=== PATIENT | male | born 1985 | race Caucasian/White ===

== ENCOUNTER 2017-11-28 22:38 | Emergency (ER) | payer SELFPAY ==
[~2017-11-28] VITALS: Ht 182.9 cm; Wt 87.0 kg
[2017-11-28] MEDS ORDERED: SODIUM CHLORIDE 0.9% 1,000 ML IV ONE ×2 (22:49→23:36)
[2017-11-28] MEDS ORDERED: TETANUS, DIPHTHERIA, PERTUSSIS VAC/PF 0.5ML (>7YR OLD) IM ONE (23:00)
[2017-11-28 23:11] LABS: BASOPHILS % 0.5 % (0.0-2.0); EOSINOPHILS % 0.4 % (0.0-5.0); HEMATOCRIT. 48.3 % (42.0-52.0); HEMOGLOBIN. 16.7 g/dL (14.0-18.0); MEAN CORPUSCULAR HEMOGLOBIN 33.8 pg (28.0-32.0); MEAN CORPUSCULAR VOLUME 98.2 fL (80.0-94.0); MEAN PLATELET VOLUME 9.6 fl (7.4-10.4); MONOCYTES % 8.2 % (2.0-8.0); NEUTROPHILS % 57.9 % (40.0-76.0); PLATELET 272 x1000/uL (130-400); RED BLOOD CELL COUNT 4.92 mill/uL (4.7-6.1); RED CELL DISTRIBUTION WIDTH 12.3 % (11.6-14.6)
[2017-11-28 23:18] LABS: CHLORIDE 103 mEq/L (98-107)
[2017-11-28 23:41] LABS: ETHANOL BLOOD 316 mg/dL
[2017-11-28 23:42] LABS: CLARITY URINE CLEAR (CLEAR); COLOR URINE YELLOW (YELLOW); KETONES URINE NEGATIVE (NEGATIVE); LEUKOCYTE ESTERASE URINE NEGATIVE (NEGATIVE); NITRITE URINE NEGATIVE (NEGATIVE); OCCULT BLOOD URINE 2+ (NEGATIVE); PROTEIN URINE 1+ (NEGATIVE); SPECIFIC GRAVITY URINE 1.026 (1.005-1.030); UROBILINOGEN URINE 0.2 E.U./dL (0.2-1.0)
[2017-11-28] MEDS ORDERED: LABETALOL 5MG/ML SYR 20 MG/4 ML SYRINGE IV SCH (23:45)
[2017-11-28] MEDS ORDERED: INSULIN REGULAR (HUMULIN R) 300UNITS/3ML IV SCH (23:45)
[2017-11-29] LABS: *AMPHETAMINES SCREEN URINE NEGATIVE (NEGATIVE); *BARBITURATES SCREEN URINE NEGATIVE (NEGATIVE); *BENZODIAZEPINES SCREEN URINE NEGATIVE (NEGATIVE)
[2017-11-29 00:02] LABS: *COCAINE SCREEN URINE NEGATIVE (NEGATIVE); CANNABINOID URINE SCREEN NEGATIVE (NEGATIVE); METHADONE URINE SCREEN NEGATIVE (NEGATIVE); OPIATES URINE SCREEN NEGATIVE (NEGATIVE); PHENCYCLIDINE URINE SCREEN NEGATIVE (NEGATIVE)
[2017-11-29 02:00] VITALS: BP 136/74
[2017-11-29] MEDS ORDERED: IOHEXOL-300 100 ML BOTTLE ONE (02:51)
== END 2017-11-29 02:35 | disposition home or self-care (01) ==
LOC: ER 23:03
DX: S01.111A Laceration without foreign body of right eyelid and periocular area, initial encounter (principal); S16.1XXA Strain of muscle, fascia and tendon at neck level, initial encounter; T51.0X1A Toxic effect of ethanol, accidental (unintentional), initial encounter; R73.9 Hyperglycemia, unspecified; R10.9 Unspecified abdominal pain; F17.200 Nicotine dependence, unspecified, uncomplicated; F12.10 Cannabis abuse, uncomplicated; Y08.89XA Assault by other specified means, initial encounter; Y93.89 Activity, other specified; Y92.89 Other specified places as the place of occurrence of the external cause; Y99.8 Other external cause status
CPT/HCPCS: 12011; 36415; 70450; 70486; 71260; 72125; 74177; 80053; 80305; 81003; 82962; 83690; 85025; 85610; 90471; 90715; 96374; 99285; G0482; J1815; J7030; Q9967; J3490

== ENCOUNTER 2020-01-03 05:25 | Emergency (ER) | payer MEDICAID ==
[~2020-01-03] VITALS: Ht 172.7 cm; Wt 70.0 kg
[2020-01-03] MEDS ORDERED: MAGNESIUM/ALUMINUM HYDROXIDE/SIMETHICONE 30ML UDC PO STA (06:28)
[2020-01-03] MEDS ORDERED: KETOROLAC 30MG/ML VIAL IV STA (06:28)
[2020-01-03] MEDS ORDERED: ONDANSETRON HCL 4MG/2ML INJ IV STA ×2 (06:28→07:51)
[2020-01-03] MEDS ORDERED: SODIUM CHLORIDE 0.9% 1,000 ML IV ONE (06:28)
[2020-01-03 06:55] LABS: CHLORIDE 96 mEq/L (98-107)
[2020-01-03 06:59] LABS: ETHANOL BLOOD < 10 mg/dL
[2020-01-03 07:16] LABS: BASOPHILS % 0.4 % (0.0-2.0); EOSINOPHILS % 0.2 % (0.0-5.0); HEMATOCRIT. 48.2 % (42.0-52.0); HEMOGLOBIN. 16.9 g/dL (14.0-18.0); LYMPHOCYTES % 16.5 % (20.0-50.0); MEAN CORPUSCULAR HEMOGLOBIN 34.3 pg (28.0-32.0); MEAN CORPUSCULAR VOLUME 97.9 fL (80.0-94.0); MEAN PLATELET VOLUME 9.5 fl (7.4-10.4); MONOCYTES % 9.6 % (2.0-8.0); NEUTROPHILS % 73.3 % (40.0-76.0); PLATELET 239 x1000/uL (130-400); RED BLOOD CELL COUNT 4.92 mill/uL (4.7-6.1); RED CELL DISTRIBUTION WIDTH 12.1 % (11.6-14.6)
[2020-01-03] MEDS ORDERED: MORPHINE SULFATE 4 MG/ML CPJ (NOT FOR IM USE) IV STA (07:51)
[2020-01-03 09:23] LABS: CLARITY URINE CLEAR (CLEAR); COLOR URINE YELLOW (YELLOW); KETONES URINE 4+ (NEGATIVE); LEUKOCYTE ESTERASE URINE NEGATIVE (NEGATIVE); NITRITE URINE NEGATIVE (NEGATIVE); OCCULT BLOOD URINE NEGATIVE (NEGATIVE); PROTEIN URINE 1+ (NEGATIVE); SPECIFIC GRAVITY URINE 1.045 (1.005-1.030); UROBILINOGEN URINE 0.2 E.U./dL (0.2-1.0)
[2020-01-03 09:38] VITALS: BP 131/91
[2020-01-03 09:57] LABS: *AMPHETAMINES SCREEN URINE NEGATIVE (NEGATIVE); *BARBITURATES SCREEN URINE NEGATIVE (NEGATIVE); *BENZODIAZEPINES SCREEN URINE NEGATIVE (NEGATIVE)
[2020-01-03 09:58] LABS: *COCAINE SCREEN URINE NEGATIVE (NEGATIVE); CANNABINOID URINE SCREEN PRESUMTIVE POSITIVE (NEGATIVE); METHADONE URINE SCREEN NEGATIVE (NEGATIVE); OPIATES URINE SCREEN NEGATIVE (NEGATIVE); PHENCYCLIDINE URINE SCREEN NEGATIVE (NEGATIVE)
== END 2020-01-03 09:40 | disposition home or self-care (01) ==
LOC: ER 05:25
DX: R10.9 Unspecified abdominal pain (principal); R11.2 Nausea with vomiting, unspecified; F12.10 Cannabis abuse, uncomplicated
CPT/HCPCS: 36415; 74176; 80053; 80305; 80320; 81003; 83690; 85025; 93005; 96361; 96374; 96375; 99285; J1885; J2270; J2405; J7030; G0480

== ENCOUNTER 2021-09-06 21:41 | Inpatient (IN) | payer SELFPAY ==
[~2021-09-06] VITALS: Ht 177.8 cm; Wt 72.6 kg
[2021-09-06] MEDS ORDERED: KETOROLAC 30MG/ML VIAL IV STA (22:36)
[2021-09-06] MEDS ORDERED: KETOROLAC 30MG/ML VIAL IM STA (22:57)
[2021-09-06 23:35] LABS: CLARITY URINE CLEAR (CLEAR); COLOR URINE YELLOW (YELLOW); KETONES URINE NEGATIVE (NEGATIVE); LEUKOCYTE ESTERASE URINE NEGATIVE (NEGATIVE); NITRITE URINE NEGATIVE (NEGATIVE); OCCULT BLOOD URINE NEGATIVE (NEGATIVE); PROTEIN URINE NEGATIVE (NEGATIVE); SPECIFIC GRAVITY URINE 1.013 (1.005-1.030)
[2021-09-06 23:40] LABS: BASOPHILS % 0.7 % (0.0-2.0); EOSINOPHILS % 2.2 % (0.0-5.0); HEMATOCRIT. 39.6 % (42.0-52.0); HEMOGLOBIN. 13.9 g/dL (14.0-18.0); LYMPHOCYTES % 21.4 % (20.0-50.0); MEAN CORPUSCULAR HEMOGLOBIN 34.4 pg (28.0-32.0); MEAN CORPUSCULAR VOLUME 98.4 fL (80.0-94.0); MONOCYTES % 10.8 % (2.0-8.0); NEUTROPHILS % 64.9 % (40.0-76.0); PLATELET 351 x1000/uL (130-400); RED BLOOD CELL COUNT 4.03 mill/uL (4.7-6.1); RED CELL DISTRIBUTION WIDTH 12.2 % (11.6-14.6)
[2021-09-06 23:47] LABS: CHLORIDE 97 mEq/L (98-107)
[2021-09-07] MEDS ORDERED: SODIUM CHLORIDE 0.9% 1000ML BAG (SEPSIS BOLUS) IV ONE (00:15)
[2021-09-07] MEDS ORDERED: VANCOMYCIN 1G PREMIX 200 ML IV NR (00:15)
[2021-09-07] MEDS ORDERED: PIPERACILLIN/TAZ 3.375G PREMIX 50 ML IV NR (00:15)
[2021-09-07] MEDS ORDERED: DOCUSATE SODIUM 100MG CAPSULE PO PRN (03:00)
[2021-09-07] MEDS ORDERED: CLONIDINE 0.1MG TABLET PO PRN (03:00)
[2021-09-07] MEDS ORDERED: GUAIFENESIN 200MG/10ML SUGAR FREE UDC PO PRN (03:00)
[2021-09-07] MEDS ORDERED: ONDANSETRON HCL 4MG/2ML INJ IV PRN (03:00)
[2021-09-07] MEDS ORDERED: IPRATROPIUM/ALBUTEROL 0.5-3(2.5)MG/3ML NEB HHN PRN (03:00)
[2021-09-07] MEDS ORDERED: ACETAMINOPHEN 325MG TABLET PO PRN (03:00)
[2021-09-07] MEDS ORDERED: DEXTROSE 50% WATER 50ML SYRINGE IV PRN (03:00)
[2021-09-07] MEDS ORDERED: CEFEPIME 1,000 MG in DEXTROSE 5% WATER 50 ML IV SCH ×5 (03:30→15:00)
[2021-09-07 05:32] LABS: EOSINOPHILS % 3.3 % (0.0-5.0); LYMPHOCYTES % 31.8 % (20.0-50.0); MEAN CORPUSCULAR HEMOGLOBIN 34.4 pg (28.0-32.0); MEAN CORPUSCULAR VOLUME 97.9 fL (80.0-94.0); NEUTROPHILS % 54.9 % (40.0-76.0); PLATELET 327 x1000/uL (130-400); RED BLOOD CELL COUNT 3.78 mill/uL (4.7-6.1); RED CELL DISTRIBUTION WIDTH 12.3 % (11.6-14.6)
[2021-09-07 05:33] LABS: CHLORIDE 103 mEq/L (98-107)
[2021-09-07 08:42] VITALS: BP 177/110
[2021-09-07] MEDS: BLOOD SUGAR DIAGNOSTIC STRIP TEST SCH ×4 (09:00→21:00)
[2021-09-07] MEDS: ENOXAPARIN 40MG/0.4ML SYR SUBCUT SCH (09:21)
[2021-09-07] MEDS: INSULIN LISPRO 100 UNITS/ML SUBCUT SCH ×6 (09:22→22:24)
[2021-09-07 10:26] LABS: *COCAINE SCREEN URINE NEGATIVE (NEGATIVE)
[2021-09-07 10:27] LABS: *AMPHETAMINES SCREEN URINE PRESUMTIVE POSITIVE (NEGATIVE); *BARBITURATES SCREEN URINE NEGATIVE (NEGATIVE); *BENZODIAZEPINES SCREEN URINE NEGATIVE (NEGATIVE); CANNABINOID URINE SCREEN NEGATIVE (NEGATIVE); METHADONE URINE SCREEN NEGATIVE (NEGATIVE); OPIATES URINE SCREEN NEGATIVE (NEGATIVE); PHENCYCLIDINE URINE SCREEN NEGATIVE (NEGATIVE)
[2021-09-07] MEDS: HYDRALAZINE 20MG/ML VIAL IV PRN (11:36)
[2021-09-07 12:00] VITALS: BP 165/115
[2021-09-07] MEDS: VANCOMYCIN 1G PREMIX 200 ML IV SCH ×2 (12:51→22:28)
[2021-09-07] MEDS: CEFEPIME 1,000 MG in DEXTROSE 5% WATER 50 ML IV SCH (15:28)
[2021-09-07 16:00] VITALS: BP 141/98
[2021-09-07 20:00] VITALS: BP 137/85
[2021-09-07] MEDS: INSULIN GLARGINE UD 100 UNITS/ML SYR SUBCUT SCH (22:23)
[2021-09-08] VITALS (7 sets, daily range): BP systolic 143–171; BP diastolic 60–111
[2021-09-08] MEDS: CEFEPIME 1,000 MG in DEXTROSE 5% WATER 50 ML IV SCH ×2 (03:10→17:21)
[2021-09-08] MEDS: VANCOMYCIN 1G PREMIX 200 ML IV SCH (04:13)
[2021-09-08] MEDS: INSULIN LISPRO 100 UNITS/ML SUBCUT SCH ×5 (06:35→20:35)
[2021-09-08] MEDS: BLOOD SUGAR DIAGNOSTIC STRIP TEST SCH ×4 (06:35→20:35)
[2021-09-08] MEDS: ENOXAPARIN 40MG/0.4ML SYR SUBCUT SCH (08:00)
[2021-09-08 08:26] LABS: CHLORIDE 99 mEq/L (98-107)
[2021-09-08 08:33] LABS: BASOPHILS % 0.7 % (0.0-2.0); EOSINOPHILS % 2.7 % (0.0-5.0); HEMATOCRIT. 39.2 % (42.0-52.0); HEMOGLOBIN. 13.8 g/dL (14.0-18.0); LYMPHOCYTES % 18.9 % (20.0-50.0); MEAN CORPUSCULAR HEMOGLOBIN 34.4 pg (28.0-32.0); MEAN CORPUSCULAR VOLUME 97.4 fL (80.0-94.0); MONOCYTES % 8.6 % (2.0-8.0); NEUTROPHILS % 69.1 % (40.0-76.0); PLATELET 287 x1000/uL (130-400); RED BLOOD CELL COUNT 4.02 mill/uL (4.7-6.1); RED CELL DISTRIBUTION WIDTH 12.3 % (11.6-14.6)
[2021-09-08] MEDS: REPAGLINIDE 1MG TABLET PO SCH ×2 (11:58→17:22)
[2021-09-08] MEDS ORDERED: VANCOMYCIN 1GM PMX (XELLIA) 200 ML IV SCH ×2 (14:00)
[2021-09-08] MEDS: VANCOMYCIN 1GM PMX (XELLIA) 200 ML IV SCH ×2 (15:02→22:12)
[2021-09-08] MEDS: HYDRALAZINE 20MG/ML VIAL IV PRN (21:26)
[2021-09-08] MEDS: INSULIN GLARGINE UD 100 UNITS/ML SYR SUBCUT SCH (22:13)
[2021-09-09] VITALS: BP 118/74
[2021-09-09 04:00] VITALS: BP 128/88
[2021-09-09] MEDS: CEFEPIME 1,000 MG in DEXTROSE 5% WATER 50 ML IV SCH ×2 (04:10→17:00)
[2021-09-09] MEDS: VANCOMYCIN 1GM PMX (XELLIA) 200 ML IV SCH ×2 (06:14→16:32)
[2021-09-09] MEDS: INSULIN LISPRO 100 UNITS/ML SUBCUT SCH ×2 (06:17→12:40)
[2021-09-09] MEDS: BLOOD SUGAR DIAGNOSTIC STRIP TEST SCH ×2 (06:17→12:42)
[2021-09-09 08:00] VITALS: BP 138/89
[2021-09-09] MEDS: REPAGLINIDE 1MG TABLET PO SCH (09:14)
[2021-09-09] MEDS: ENOXAPARIN 40MG/0.4ML SYR SUBCUT SCH (09:14)
[2021-09-09 12:00] VITALS: BP 122/75
[2021-09-09] MEDS ORDERED: REPAGLINIDE 1MG TABLET PO SCH (12:40)
[2021-09-09] MEDS ORDERED: SULF1TAB48 MT (13:05)
[2021-09-09] MEDS ORDERED: METF-414 MT (13:05)
[2021-09-09] MEDS ORDERED: LEVO500T89 MT (13:05)
[2021-09-09] MEDS ORDERED: EMPA25TA MT (13:05)
[2021-09-09 14:02] VITALS: BP 114/78
[2021-09-09 16:00] VITALS: BP 113/71
== END 2021-09-09 18:00 | disposition home or self-care (01) | DRG 342 ==
LOC: ER 21:41 → 8WST 09-07 02:33 → EDBEDREQTM 09-07 02:59 → EDBEDREQSVC 09-07 02:59 → EDBEDREQ 09-07 02:59 → ENRESERV 09-07 07:28 → 8WST 09-07 08:19
PROVIDERS: ADMIT Internal Medicine; ATTEND Internal Medicine
DX: S92.411A Displaced fracture of proximal phalanx of right great toe, initial encounter for closed fracture (principal); E87.1 Hypo-osmolality and hyponatremia; L03.031 Cellulitis of right toe; F15.90 Other stimulant use, unspecified, uncomplicated; E11.65 Type 2 diabetes mellitus with hyperglycemia; I10 Essential (primary) hypertension; Z90.49 Acquired absence of other specified parts of digestive tract; X58.XXXA Exposure to other specified factors, initial encounter; Y93.89 Activity, other specified; Y92.89 Other specified places as the place of occurrence of the external cause; Y99.8 Other external cause status
CPT/HCPCS: 36415; 71045; 73610; 73630; 80048; 80053; 80202; 80305; 81003; 82962; 83036; 83605; 84145; 85025; 93005; 93971; 99285; J0360; J0692; J1650; J1815; J1885; J2405; J2543; J3370; J7040; J7060

== ENCOUNTER 2023-12-30 14:42 | Inpatient (IN) | payer MEDICAID ==
[~2023-12-30] VITALS: Ht 177.8 cm; Wt 70.3 kg
[~2023-12-30 14:42] MED LIST: EMPA25TA MT; LEVO-65 MT; METF-414 MT; SULF1TAB48 MT
[2023-12-30 15:45] LABS: BASOPHILS % 0.4 % (0.0-2.0); EOSINOPHILS % 0.5 % (0.0-5.0); HEMATOCRIT. 36.6 % (42.0-52.0); HEMOGLOBIN. 11.8 g/dL (14.0-18.0); LYMPHOCYTES % 8.6 % (20.0-50.0); MEAN CORPUSCULAR HEMOGLOBIN 32.1 pg (28.0-32.0); MEAN CORPUSCULAR HGB CONC 32.2 g/dL (31.0-37.0); MEAN CORPUSCULAR VOLUME 99.8 fL (80.0-94.0); MEAN PLATELET VOLUME 8.1 fl (7.4-10.4); MONOCYTES % 7.7 % (2.0-8.0); NEUTROPHILS % 82.8 % (40.0-76.0); PLATELET 578 x1000/uL (130-400); RED BLOOD CELL COUNT 3.67 mill/uL (4.7-6.1)
[2023-12-30 15:54] LABS: CHLORIDE 91 mEq/L (98-107); INR 0.9; POTASSIUM 4.8 mEq/L (3.5-5.1); PROTHROMBIN TIME 10.3 sec (9.6-11.0); SODIUM 123 mEq/L (136-145)
[2023-12-30 15:55] LABS: CALCIUM 8.8 mg/dL (8.7-10.4); CARBON DIOXIDE 23 mEq/L (21-32)
[2023-12-30 15:59] LABS: CREATININE 1.2 mg/dL (0.6-1.3)
[2023-12-30 16:00] LABS: UREA NITROGEN BLOOD 14 mg/dL (9-23)
[2023-12-30 16:13] LABS: GLUCOSE 668 mg/dL (70-105)
[2023-12-30 16:14] LABS: LACTIC ACID 3.9 mmol/L (0.4-2.0)
[2023-12-30] MEDS: LEVOFLOXACIN 500MG PREMIX 100 ML IV ONE (16:30)
[2023-12-30] MEDS: SODIUM CHLORIDE 0.9% 1000ML BAG (SEPSIS BOLUS) IV ONE (16:38)
[2023-12-30] MEDS: PIPERACILLIN/TAZO 3.375G/50ML 50 ML IV ONE (16:40)
[2023-12-30] MEDS ORDERED: MAGNESIUM/ALUMINUM HYDROXIDE/SIMETHICONE 30ML UDC PO PRN (18:30)
[2023-12-30] MEDS ORDERED: IPRATROPIUM/ALBUTEROL 0.5-3(2.5)MG/3ML NEB HHN PRN (18:30)
[2023-12-30] MEDS ORDERED: GUAIFENESIN 200MG/10ML SUGAR FREE UDC PO PRN (18:30)
[2023-12-30] MEDS ORDERED: ONDANSETRON HCL 4MG/2ML INJ IV PRN (18:30)
[2023-12-30] MEDS ORDERED: DEXTROSE 50% WATER 50ML SYRINGE IV PRN (18:30)
[2023-12-30] MEDS ORDERED: ACETAMINOPHEN 325MG TABLET PO PRN (18:30)
[2023-12-30] MEDS ORDERED: DOCUSATE SODIUM 100MG CAPSULE PO PRN (18:30)
[2023-12-30] MEDS ORDERED: NOREPINEPHRINE 8MG/250ML PMX 250 ML IV PRN (18:46)
[2023-12-30] MEDS: INSULIN LISPRO 100 UNITS/ML SUBCUT ONE (19:40)
[2023-12-30 19:49] LABS: BETA HYDROXYBUTYRATE < 0.1 mMol/L (0.0-0.3)
[2023-12-30] MEDS ORDERED: CEFEPIME 1GM/50ML 50 ML IV SCH (20:00)
[2023-12-30] MEDS: INSULIN LISPRO 100 UNITS/ML SUBCUT SCH (21:00)
[2023-12-30] MEDS ORDERED: CEFTRIAXONE 2GM/50ML 50 ML IV SCH (21:00)
[2023-12-30] MEDS: VANCOMYCIN 1.5GM/250ML 250 ML IV SCH (21:00)
[2023-12-30] MEDS: BLOOD SUGAR DIAGNOSTIC STRIP TEST SCH (21:00)
[2023-12-30 21:53] LABS: CREATINE KINASE 25 IU/L (46-171)
[2023-12-31 02:07] VITALS: BP 100/62; PULSE 90; RESP 18; TEMP 97.8
[2023-12-31 04:28] LABS: CLARITY URINE CLEAR (CLEAR); COLOR URINE YELLOW (YELLOW); GLUCOSE URINE 3+ (NEGATIVE); KETONES URINE NEGATIVE (NEGATIVE); LEUKOCYTE ESTERASE URINE NEGATIVE (NEGATIVE); NITRITE URINE NEGATIVE (NEGATIVE); OCCULT BLOOD URINE NEGATIVE (NEGATIVE); PH URINE 6.5 (4.5-8.0); PROTEIN URINE NEGATIVE (NEGATIVE); SPECIFIC GRAVITY URINE 1.029 (1.005-1.030); UROBILINOGEN URINE 0.2 E.U./dL (0.2-1.0)
[2023-12-31 04:35] LABS: *AMPHETAMINES SCREEN URINE NEGATIVE (NEGATIVE); *BARBITURATES SCREEN URINE NEGATIVE (NEGATIVE); *BENZODIAZEPINES SCREEN URINE NEGATIVE (NEGATIVE); *COCAINE SCREEN URINE NEGATIVE (NEGATIVE); CANNABINOID URINE SCREEN NEGATIVE (NEGATIVE); ECSTASY MDMA SCREEN URINE NEGATIVE (NEGATIVE); METHADONE URINE SCREEN NEGATIVE (NEGATIVE); OPIATES URINE SCREEN NEGATIVE (NEGATIVE); PHENCYCLIDINE URINE SCREEN NEGATIVE (NEGATIVE)
[2023-12-31 04:37] VITALS: BP 124/80; PULSE 85; RESP 18; TEMP 97.2
[2023-12-31 05:03] LABS: BACTERIA URINE TRACE; RBC URINE 0-2 /hpf (0-2); SQUAMOUS EPITHELIAL CELL URINE FEW /lpf (RARE/1+); WBC URINE 0-2 /hpf (0-2)
[2023-12-31] MEDS: CLINDAMYCIN HCL 150MG CAPSULE PO SCH (05:28)
[2023-12-31] MEDS: VANCOMYCIN 750MG/250ML IV SCH (06:09)
[2023-12-31] MEDS: SODIUM CHLORIDE 0.9% 1,000 ML IV SCH (06:50)
[2023-12-31 07:40] LABS: BASOPHILS % 0.6 % (0.0-2.0); EOSINOPHILS % 1.2 % (0.0-5.0); HEMATOCRIT. 34.4 % (42.0-52.0); HEMOGLOBIN. 11.5 g/dL (14.0-18.0); MEAN CORPUSCULAR HEMOGLOBIN 32.1 pg (28.0-32.0); MEAN CORPUSCULAR HGB CONC 33.4 g/dL (31.0-37.0); MEAN CORPUSCULAR VOLUME 96.4 fL (80.0-94.0); MEAN PLATELET VOLUME 8.3 fl (7.4-10.4); MONOCYTES % 9.2 % (2.0-8.0); PLATELET 618 x1000/uL (130-400); RED BLOOD CELL COUNT 3.57 mill/uL (4.7-6.1); WHITE BLOOD COUNT 8.1 x1000/uL (4.5-11.0)
[2023-12-31 07:41] LABS: CALCIUM 8.8 mg/dL (8.7-10.4); CARBON DIOXIDE 26 mEq/L (21-32); CHLORIDE 99 mEq/L (98-107); POTASSIUM 4.7 mEq/L (3.5-5.1)
[2023-12-31 07:45] LABS: CREATINE KINASE MB FRACTION < 0.5 ng/mL (0.5-3.6)
[2023-12-31 07:47] LABS: CREATININE 0.7 mg/dL (0.6-1.3); TRIGLYCERIDE 127 mg/dL (0-150); UREA NITROGEN BLOOD 8 mg/dL (9-23)
[2023-12-31 07:48] LABS: LDL CHOLESTEROL 58 mg/dL (5-100)
[2023-12-31 07:49] LABS: CHOLESTEROL 111 mg/dL (<200); HDL CHOLESTEROL 37 mg/dL (>55)
[2023-12-31 07:50] LABS: T4 FREE 1.18 ng/dL (0.89-1.76)
[2023-12-31 07:55] LABS: SODIUM 132 mEq/L (136-145)
[2023-12-31 07:56] LABS: GLUCOSE 365 mg/dL (70-105)
[2023-12-31 08:00] VITALS: BP 101/73; PULSE 76; RESP 18; TEMP 97.3
[2023-12-31] MEDS: LACTOBACILLUS GG CAPSULE PO SCH (08:43)
[2023-12-31] MEDS: THIAMINE HCL 100MG TABLET PO SCH (08:43)
[2023-12-31] MEDS: ENOXAPARIN 40MG/0.4ML SYR SUBCUT SCH (08:44)
[2023-12-31] MEDS: INSULIN LISPRO 100 UNITS/ML SUBCUT SCH (08:57)
[2023-12-31] MEDS ORDERED: CEFEPIME 1GM IN DEXT 5% 50ML IV SCH (09:00)
[2023-12-31] MEDS: INSULIN GLARGINE 100 UNITS/ML SUBCUT SCH (09:03)
[2023-12-31] MEDS: CEFTRIAXONE 2GM/50ML 50 ML IV SCH (11:34)
[2023-12-31 12:00] VITALS: BP 128/89; PULSE 98; RESP 18; TEMP 98.1
[2023-12-31 16:00] VITALS: BP 120/76; PULSE 79; RESP 18; TEMP 98.1
[2023-12-31 20:00] VITALS: BP 129/93; PULSE 83; RESP 19; TEMP 97.5
[2023-12-31] MEDS: MORPHINE SULFATE 2 MG/ML INJ (NOT FOR IM USE) IV PRN (20:17)
[2024-01-01] VITALS: BP 108/75; PULSE 75; RESP 19; TEMP 97.3
[2024-01-01 04:00] VITALS: BP 95/71; PULSE 78; RESP 19; TEMP 98.2
[2024-01-01 08:00] VITALS: BP 110/76; PULSE 76; RESP 18; TEMP 97.2
[2024-01-01] MEDS ORDERED: NALOXONE HCL 0.4MG/ML VIAL IV PRN (08:15)
[2024-01-01 10:36] LABS: BASOPHILS % 0.5 % (0.0-2.0); EOSINOPHILS % 1.4 % (0.0-5.0); HEMATOCRIT. 34.3 % (42.0-52.0); HEMOGLOBIN. 11.6 g/dL (14.0-18.0); LYMPHOCYTES % 24.2 % (20.0-50.0); MEAN CORPUSCULAR HEMOGLOBIN 32.8 pg (28.0-32.0); MEAN CORPUSCULAR HGB CONC 33.7 g/dL (31.0-37.0); MEAN CORPUSCULAR VOLUME 97.2 fL (80.0-94.0); MEAN PLATELET VOLUME 7.8 fl (7.4-10.4); MONOCYTES % 6.5 % (2.0-8.0); NEUTROPHILS % 67.4 % (40.0-76.0); PLATELET 643 x1000/uL (130-400); RED BLOOD CELL COUNT 3.53 mill/uL (4.7-6.1); RED CELL DISTRIBUTION WIDTH 13.7 % (11.6-14.6); WHITE BLOOD COUNT 6.9 x1000/uL (4.5-11.0)
[2024-01-01 11:05] LABS: CARBON DIOXIDE 25 mEq/L (21-32); CHLORIDE 94 mEq/L (98-107); POTASSIUM 4.3 mEq/L (3.5-5.1); SODIUM 126 mEq/L (136-145)
[2024-01-01 11:06] LABS: CALCIUM 8.7 mg/dL (8.7-10.4)
[2024-01-01 11:11] LABS: CREATININE 0.6 mg/dL (0.6-1.3); GLUCOSE 367 mg/dL (70-105); UREA NITROGEN BLOOD 8 mg/dL (9-23)
[2024-01-01 12:00] VITALS: BP 95/64; PULSE 73; RESP 18; TEMP 97.2
[2024-01-01] MEDS: SODIUM HYPOCHLORITE (0.25%) 480ML SOLUTION (HALF STRENGTH) TOP SCH (12:14)
[2024-01-01 16:00] VITALS: BP 117/82; PULSE 88; RESP 20; TEMP 97.2
[2024-01-01 20:00] VITALS: BP 148/108; PULSE 87; RESP 20; TEMP 97.3
[2024-01-01] MEDS: VANCOMYCIN 750MG/250ML IV SCH (21:09)
[2024-01-01] MEDS ORDERED: VANCOMYCIN 750MG/150ML (BAXTER) IV NR (22:00)
[2024-01-02] VITALS: BP 120/66; PULSE 76; RESP 19; TEMP 97.6
[2024-01-02 04:00] VITALS: BP 103/71; PULSE 77; RESP 18; TEMP 97.9
[2024-01-02 08:00] VITALS: BP 115/79; PULSE 84; RESP 20; TEMP 97.9
[2024-01-02 12:00] VITALS: BP 131/89; PULSE 80; RESP 20; TEMP 97.9
[2024-01-02 12:24] LABS: BASOPHILS % 0.5 % (0.0-2.0); HEMATOCRIT. 34.1 % (42.0-52.0); HEMOGLOBIN. 11.5 g/dL (14.0-18.0); LYMPHOCYTES % 24.8 % (20.0-50.0); MEAN CORPUSCULAR HEMOGLOBIN 32.2 pg (28.0-32.0); MEAN CORPUSCULAR HGB CONC 33.7 g/dL (31.0-37.0); MEAN CORPUSCULAR VOLUME 95.6 fL (80.0-94.0); MEAN PLATELET VOLUME 7.4 fl (7.4-10.4); MONOCYTES % 7.9 % (2.0-8.0); NEUTROPHILS % 65.8 % (40.0-76.0); PLATELET 699 x1000/uL (130-400); RED BLOOD CELL COUNT 3.56 mill/uL (4.7-6.1); RED CELL DISTRIBUTION WIDTH 13.7 % (11.6-14.6); WHITE BLOOD COUNT 7.2 x1000/uL (4.5-11.0)
[2024-01-02 12:33] LABS: CHLORIDE 101 mEq/L (98-107); POTASSIUM 4.4 mEq/L (3.5-5.1); SODIUM 132 mEq/L (136-145)
[2024-01-02 12:34] LABS: CARBON DIOXIDE 26 mEq/L (21-32)
[2024-01-02 12:35] LABS: CALCIUM 8.8 mg/dL (8.7-10.4)
[2024-01-02 12:39] LABS: CREATININE 0.6 mg/dL (0.6-1.3); GLUCOSE 228 mg/dL (70-105)
[2024-01-02 12:40] LABS: UREA NITROGEN BLOOD 9 mg/dL (9-23)
[2024-01-02] MEDS: VANCOMYCIN 750MG/250ML IV SCH (15:07)
[2024-01-02 16:00] VITALS: BP 135/97; PULSE 88; RESP 18; TEMP 97.9
[2024-01-02 20:00] VITALS: BP 168/115; PULSE 93; RESP 20; TEMP 98.6
[2024-01-02] MEDS: MEROPENEM 1G/100ML 100 ML IV SCH (22:06)
[2024-01-02] MEDS: CLONIDINE 0.1MG TABLET PO PRN (22:34)
[2024-01-03] VITALS: BP 92/53; PULSE 78; RESP 20; TEMP 97.7
[2024-01-03 04:00] VITALS: BP 98/63; PULSE 75; RESP 20; TEMP 97.9
[2024-01-03 06:01] LABS: BASOPHILS % 0.7 % (0.0-2.0); EOSINOPHILS % 1.1 % (0.0-5.0); HEMATOCRIT. 31.3 % (42.0-52.0); HEMOGLOBIN. 10.7 g/dL (14.0-18.0); LYMPHOCYTES % 25.7 % (20.0-50.0); MEAN CORPUSCULAR HEMOGLOBIN 32.4 pg (28.0-32.0); MEAN CORPUSCULAR HGB CONC 34.1 g/dL (31.0-37.0); MEAN CORPUSCULAR VOLUME 95.1 fL (80.0-94.0); MEAN PLATELET VOLUME 7.8 fl (7.4-10.4); MONOCYTES % 8.2 % (2.0-8.0); NEUTROPHILS % 64.3 % (40.0-76.0); PLATELET 602 x1000/uL (130-400); RED BLOOD CELL COUNT 3.29 mill/uL (4.7-6.1); RED CELL DISTRIBUTION WIDTH 13.5 % (11.6-14.6); WHITE BLOOD COUNT 6.5 x1000/uL (4.5-11.0)
[2024-01-03 06:07] LABS: CARBON DIOXIDE 28 mEq/L (21-32); CHLORIDE 102 mEq/L (98-107); POTASSIUM 4.1 mEq/L (3.5-5.1); SODIUM 133 mEq/L (136-145)
[2024-01-03 06:08] LABS: CALCIUM 8.7 mg/dL (8.7-10.4)
[2024-01-03 06:12] LABS: CREATININE 0.5 mg/dL (0.6-1.3); GLUCOSE 229 mg/dL (70-105)
[2024-01-03 06:13] LABS: UREA NITROGEN BLOOD 7 mg/dL (9-23)
[2024-01-03 08:11] VITALS: BP 130/95; PULSE 77; RESP 18; TEMP 98.5
[2024-01-03] MEDS: INSULIN GLARGINE 100 UNITS/ML SUBCUT SCH (09:22)
[2024-01-03 11:46] VITALS: BP 110/79; PULSE 72; RESP 20; TEMP 97.2
[2024-01-03 16:21] VITALS: BP 143/99; PULSE 93; RESP 18; TEMP 98.2
[2024-01-03 20:00] VITALS: BP 130/95; PULSE 94; RESP 18; TEMP 98
[2024-01-04] VITALS: BP 140/91; PULSE 93; RESP 20; TEMP 98
[2024-01-04 04:00] VITALS: BP 112/80; PULSE 80; RESP 18; TEMP 97.1
[2024-01-04 06:54] LABS: BASOPHILS % 1.2 % (0.0-2.0); EOSINOPHILS % 1.4 % (0.0-5.0); HEMATOCRIT 34.3 % (42.0-52.0); HEMATOCRIT. 34.3 % (42.0-52.0); HEMOGLOBIN 11.5 g/dL (14.0-18.0); HEMOGLOBIN. 11.5 g/dL (14.0-18.0); LYMPHOCYTES % 27.2 % (20.0-50.0); MEAN CORPUSCULAR HEMOGLOBIN 32.2 pg (28.0-32.0); MEAN CORPUSCULAR HGB CONC 33.5 g/dL (31.0-37.0); MEAN CORPUSCULAR VOLUME 96.1 fL (80.0-94.0); MEAN PLATELET VOLUME 7.3 fl (7.4-10.4); MONOCYTES % 7.2 % (2.0-8.0); PLATELET 655 x1000/uL (130-400); RED BLOOD CELL COUNT 3.57 mill/uL (4.7-6.1); RED CELL DISTRIBUTION WIDTH 13.9 % (11.6-14.6); WHITE BLOOD COUNT 7.5 x1000/uL (4.5-11.0)
[2024-01-04 07:00] LABS: CARBON DIOXIDE 28 mEq/L (21-32); CHLORIDE 101 mEq/L (98-107); POTASSIUM 4.5 mEq/L (3.5-5.1); SODIUM 135 mEq/L (136-145)
[2024-01-04 07:01] LABS: CALCIUM 9.1 mg/dL (8.7-10.4)
[2024-01-04 07:06] LABS: CREATININE 0.7 mg/dL (0.6-1.3); GLUCOSE 194 mg/dL (70-105); UREA NITROGEN BLOOD 9 mg/dL (9-23)
[2024-01-04 07:08] LABS: PHOSPHORUS 4.2 mg/dL (2.5-4.9)
[2024-01-04 08:00] VITALS: BP 129/81; PULSE 78; RESP 18; TEMP 97.6
[2024-01-04] MEDS ORDERED: LIDOCAINE HCL 1% 20ML VIAL ONE (08:31)
[2024-01-04] MEDS ORDERED: BUPIVACAINE HCL/PF 0.5% (5MG/ML) 10ML ONE (08:32)
[2024-01-04] MEDS ORDERED: BACITRACIN 14GM TUBE TOP ONE (08:33)
[2024-01-04] MEDS ORDERED: GENTAMICIN SULF 40MG/ML 2ML VIAL ONE (08:34)
[2024-01-04] MEDS ORDERED: POLYMYXIN B SULFATE 500000 UNITS/VIAL ONE (08:40)
[2024-01-04] MEDS ORDERED: KETOROLAC 30MG/ML VIAL ONE (08:41)
[2024-01-04] MEDS ORDERED: TRIAMCINOLONE ACETONIDE 40MG/ML 1ML VIAL ONE (08:49)
[2024-01-04] MEDS ORDERED: LIDOCAINE HCL 1% 10 MG/ML 10ML VIAL ONE ×2 (10:05→10:40)
[2024-01-04] MEDS ORDERED: FENTANYL CITRATE/PF 50MCG/ML 2ML VIAL ONE (10:35)
[2024-01-04] MEDS ORDERED: PROPOFOL 200MG/20ML VIAL IV ONE (10:36)
[2024-01-04] MEDS ORDERED: MIDAZOLAM HCL 2 MG/2 ML VIAL ONE (10:38)
[2024-01-04] MEDS ORDERED: MEPERIDINE HCL/PF 25MG/ML CPJ IV PRN (11:15)
[2024-01-04] MEDS ORDERED: HYDROMORPHONE HCL/PF 2MG/ML INJ IV PRN (11:15)
[2024-01-04] MEDS ORDERED: ONDANSETRON HCL 4MG/2ML INJ IV PRN (11:15)
[2024-01-04] MEDS: LABETALOL 5MG/ML 4ML INJ IV PRN (12:07)
[2024-01-04] MEDS ORDERED: INSULIN LISPRO 100 UNITS/ML SUBCUT SCH (17:40)
[2024-01-04] MEDS: INSULIN LISPRO 100 UNITS/ML SUBCUT SCH (18:02)
[2024-01-04 18:14] VITALS: BP 153/100; PULSE 90; RESP 20; TEMP 97.3
[2024-01-04 20:00] VITALS: BP 131/90; PULSE 92; RESP 20; TEMP 98.4
[2024-01-04] MEDS: INSULIN GLARGINE 100 UNITS/ML SUBCUT SCH (21:42)
[2024-01-04] MEDS ORDERED: INSULIN GLARGINE 100 UNITS/ML SUBCUT SCH (22:00)
[2024-01-04] MEDS: ACETAMINOPHEN 325MG TABLET PO PRN (22:33)
[2024-01-05] VITALS: BP 112/69; PULSE 78; RESP 18; TEMP 97.8
[2024-01-05 04:00] VITALS: BP 101/68; PULSE 78; RESP 18; TEMP 98.2
[2024-01-05 08:00] VITALS: BP 113/79; PULSE 77; RESP 17; TEMP 97.5
[2024-01-05] MEDS: MORPHINE SULFATE 2 MG/ML INJ (NOT FOR IM USE) IV PRN (08:49)
[2024-01-05 12:00] VITALS: BP 117/79; PULSE 89; RESP 20; TEMP 97.6
[2024-01-05 16:00] VITALS: BP 119/81; PULSE 79; RESP 18; TEMP 97.8
[2024-01-05 20:00] VITALS: BP 111/73; PULSE 96; RESP 17; TEMP 97.8
[2024-01-05] MEDS: INSULIN GLARGINE 100 UNITS/ML SUBCUT SCH (21:39)
[2024-01-06] VITALS: BP 128/79; PULSE 88; RESP 16; TEMP 97.1
[2024-01-06 04:52] VITALS: BP 165/92; PULSE 82; RESP 19; TEMP 97.1
[2024-01-06 08:00] VITALS: BP 143/91; PULSE 66; RESP 18; TEMP 97.6
[2024-01-06 11:24] VITALS: BP 142/98; PULSE 74; RESP 16; TEMP 97.3
[2024-01-06 16:00] VITALS: BP 143/96; PULSE 74; RESP 16; TEMP 97.1
[2024-01-06 20:00] VITALS: BP 137/89; PULSE 80; TEMP 97.5
[2024-01-06] MEDS ORDERED: NALOXONE HCL 0.4MG/ML VIAL IV PRN (21:30)
[2024-01-07] VITALS: BP 118/86; PULSE 81; RESP 16; TEMP 96.6
[2024-01-07 02:59] LABS: CARBON DIOXIDE 27 mEq/L (21-32); CHLORIDE 105 mEq/L (98-107); POTASSIUM 4.3 mEq/L (3.5-5.1); SODIUM 137 mEq/L (136-145)
[2024-01-07 03:00] LABS: CALCIUM 8.7 mg/dL (8.7-10.4)
[2024-01-07 03:04] LABS: CREATININE 0.6 mg/dL (0.6-1.3)
[2024-01-07 03:05] LABS: GLUCOSE 168 mg/dL (70-105); UREA NITROGEN BLOOD 8 mg/dL (9-23)
[2024-01-07 04:20] VITALS: BP 109/74; PULSE 70; RESP 19; TEMP 96.6
[2024-01-07] MEDS: INSULIN LISPRO 100 UNITS/ML SUBCUT SCH (07:40)
[2024-01-07 08:00] VITALS: BP 131/85; PULSE 76; RESP 20; TEMP 96.8
[2024-01-07] MEDS ORDERED: LIDOCAINE HCL 1% 10 MG/ML 10ML VIAL ONE (08:10)
[2024-01-07 11:07] VITALS: BP 145/100; PULSE 78; RESP 20; TEMP 97.9
[2024-01-07 16:00] VITALS: BP 142/93; PULSE 80; RESP 19; TEMP 97.7
[2024-01-07] MEDS ORDERED: BLOO-1992 MC (18:23)
[2024-01-07] MEDS ORDERED: DAKIHS TOP (18:23)
[2024-01-07] MEDS ORDERED: THIA100T72 PO (18:23)
[2024-01-07] MEDS ORDERED: LACT1CAP77 PO (18:23)
[2024-01-07] MEDS ORDERED: INSU100I13 SQ (18:23)
[2024-01-07] MEDS ORDERED: INSU100I28 SQ (18:23)
[2024-01-07] MEDS ORDERED: METF-414 PO (18:23)
[2024-01-07 20:00] VITALS: BP 108/84; PULSE 87; RESP 20; TEMP 98.6
[2024-01-08] VITALS: BP 108/70; PULSE 76; RESP 20; TEMP 98.1
[2024-01-08 04:00] VITALS: BP 103/69; PULSE 72; RESP 20; TEMP 97.5
[2024-01-08 08:00] VITALS: BP 154/67; PULSE 87; RESP 19; TEMP 97.9
[2024-01-08 16:00] VITALS: BP 139/99; PULSE 87; RESP 20; TEMP 97.9
[2024-01-08 16:22] VITALS: BP 154/88; PULSE 87; TEMP 97.9; O2SAT 100
[2024-01-08] MEDS ORDERED: HYDR-4001 MT ×2 (17:53→17:55)
[2024-01-08] MEDS ORDERED: BLOO-1992 MC (17:55)
[2024-01-08] MEDS ORDERED: INSU100I28 SQ (17:55)
[2024-01-08] MEDS ORDERED: METF-414 PO (17:55)
[2024-01-08] MEDS ORDERED: THIA100T72 PO (17:55)
[2024-01-08] MEDS ORDERED: LACT1CAP77 PO (17:55)
[2024-01-08] MEDS ORDERED: INSU100I13 SQ (17:55)
[2024-01-08] MEDS ORDERED: DAKIHS TOP (17:55)
[2024-01-08] MEDS ORDERED: HYDROCODONE/ACETAMINOPHEN 5/325MG TABLET PO PRN (18:00)
== END 2024-01-08 20:00 | disposition home or self-care (01) | DRG 305 ==
LOC: ER 14:42 → 7WST 12-31 00:38 → EDBEDREQ 12-31 00:44 → EDBEDREQTM 12-31 00:44 → EDBEDREQDT 12-31 00:44 → 6EST 01-07 14:16
PROVIDERS: ADMIT Preventive Medicine Clinical Informatics; ATTEND Preventive Medicine Clinical Informatics
PROC: 0Y6M0ZC Detachment at Right Foot, Partial 3rd Ray, Open Approach (ICD-10-PCS; principal; 2024-01-04)
PROC: 02HV33Z Insertion of Infusion Device into Superior Vena Cava, Percutaneous Approach (ICD-10-PCS; 2024-01-07)
PROC: B518ZZA Fluoroscopy of Superior Vena Cava, Guidance (ICD-10-PCS; 2024-01-07)
PROC: B548ZZA Ultrasonography of Superior Vena Cava, Guidance (ICD-10-PCS; 2024-01-07)
DX: E11.52 Type 2 diabetes mellitus with diabetic peripheral angiopathy with gangrene (principal); M86.171 Other acute osteomyelitis, right ankle and foot; E87.20 Acidosis, unspecified; E87.1 Hypo-osmolality and hyponatremia; M86.671 Other chronic osteomyelitis, right ankle and foot; E11.621 Type 2 diabetes mellitus with foot ulcer; L03.115 Cellulitis of right lower limb; E11.69 Type 2 diabetes mellitus with other specified complication; L97.414 Non-pressure chronic ulcer of right heel and midfoot with necrosis of bone; L02.611 Cutaneous abscess of right foot; E87.70 Fluid overload, unspecified; D64.9 Anemia, unspecified; L97.519 Non-pressure chronic ulcer of other part of right foot with unspecified severity; F17.200 Nicotine dependence, unspecified, uncomplicated; D75.838 Other thrombocytosis; F15.10 Other stimulant abuse, uncomplicated; I10 Essential (primary) hypertension; L97.513 Non-pressure chronic ulcer of other part of right foot with necrosis of muscle; Z91.148 Patient's other noncompliance with medication regimen for other reason; Z79.899 Other long term (current) drug therapy; Z79.4 Long term (current) use of insulin; Z91.199 Patient's noncompliance with other medical treatment and regimen due to unspecified reason
CPT/HCPCS: 36415; 36573; 71045; 73630; 73721; 80048; 80061; 80202; 80305; 81003; 82010; 82550; 82553; 82962; 83036; 83605; 83735; 83930; 84100; 84145; 84439; 84443; 85025; 85027; 85651; 87070; 87077; 87186; 88304; 88311; 93005; 93923; 97022; 97116; 97162; 97164; 97166; 99285; C1725; J0692; J0696; J1580; J1650; J1815; J1885; J1956; J2185; J2250; J2270; J2543; J2704; J3010; J3301; J3370; J3490; J7030

== ENCOUNTER 2024-01-10 11:14 | Emergency (ER) | payer BC, MEDICAID ==
[~2024-01-10] VITALS: Ht 175.3 cm; Wt 79.0 kg
[~2024-01-10 11:14] MED LIST changes: +BLOO-1992 MC; +DAKIHS TOP; -EMPA25TA MT; +HYDR-4001 MT; +INSU100I13 SQ; +INSU100I28 SQ; +LACT1CAP77 PO; -LEVO-65 MT; -METF-414 MT; +METF-414 PO; -SULF1TAB48 MT; +THIA100T72 PO
[2024-01-10 11:23] VITALS: O2SAT 99
[2024-01-10] MEDS: VANCOMYCIN 1,250 MG in DEXT 5% WATER 250 ML IV SCH (12:42)
[2024-01-10] MEDS: SODIUM CHLORIDE 0.9% 1,000 ML IV ONE (12:42)
[2024-01-10] MEDS: KETOROLAC 15MG/ML VIAL IV ONE (12:42)
[2024-01-10 15:52] VITALS: BP 117/83; PULSE 91; RESP 18; TEMP 98.9
== END 2024-01-10 15:53 | disposition home or self-care (01) ==
LOC: ER 11:14
DX: M86.171 Other acute osteomyelitis, right ankle and foot (principal); E11.9 Type 2 diabetes mellitus without complications; F12.10 Cannabis abuse, uncomplicated; Z76.0 Encounter for issue of repeat prescription; Z79.899 Other long term (current) drug therapy
CPT/HCPCS: 96365; 96375; 99284; J1885; J3370; J7060; J7030; Z7610 ×2

== ENCOUNTER 2025-03-04 19:22 | Inpatient (IN) | payer MEDICAID ==
[~2025-03-04] VITALS: Ht 177.8 cm; Wt 80.3 kg
[~2025-03-04 19:22] MED LIST changes: -DAKIHS TOP; -HYDR-4001 MT; -INSU100I28 SQ; -LACT1CAP77 PO
[2025-03-04 19:36] VITALS: O2SAT 99
[2025-03-04 21:54] LABS: BASOPHILS % 0.9 % (0.0-2.0); EOSINOPHILS % 4.2 % (0.0-5.0); HEMATOCRIT. 35.8 % (42.0-52.0); HEMOGLOBIN. 11.6 g/dL (14.0-18.0); LYMPHOCYTES % 41.0 % (20.0-50.0); MEAN PLATELET VOLUME 8.5 fl (7.4-10.4); MONOCYTES % 8.5 % (2.0-8.0); NEUTROPHILS % 45.4 % (40.0-76.0); PLATELET 323 x1000/uL (130-400); RED BLOOD CELL COUNT 3.85 mill/uL (4.7-6.1); RED CELL DISTRIBUTION WIDTH 14.1 % (11.6-14.6)
[2025-03-04 22:09] LABS: CREATININE 0.8 mg/dL (0.6-1.3); UREA NITROGEN BLOOD 5 mg/dL (9-23)
[2025-03-05] MEDS ORDERED: LOSA50TA41 PO (02:39)
[2025-03-05] MEDS ORDERED: INSU100I28 SUBCUT (02:39)
[2025-03-05] MEDS ORDERED: DEXTROSE 50% WATER 50ML SYRINGE IV PRN ×2 (03:00→15:15)
[2025-03-05] MEDS: VANCOMYCIN 1.5GM/250ML IV NR (04:00)
[2025-03-05 05:13] VITALS: BP 157/103; PULSE 90; RESP 21; TEMP 36.5848
[2025-03-05] MEDS: PIPERACILLIN/TAZO 3.375G/50ML 50 ML IV SCH (06:13)
[2025-03-05] MEDS: BLOOD SUGAR DIAGNOSTIC STRIP TEST SCH ×2 (07:57→17:20)
[2025-03-05 08:00] VITALS: BP 156/100; PULSE 82; RESP 17; TEMP 36.4; O2SAT 100
[2025-03-05] MEDS: LOSARTAN 50 MG TABLET PO SCH (09:45)
[2025-03-05] MEDS: ENOXAPARIN 40MG/0.4ML SYR SUBCUT SCH (09:46)
[2025-03-05] MEDS: INSULIN GLARGINE 100 UNITS/ML SUBCUT SCH ×2 (09:47→21:59)
[2025-03-05] MEDS: INSULIN LISPRO 100 UNITS/ML SUBCUT SCH ×2 (09:48→17:44)
[2025-03-05] MEDS: HYDROCODONE/ACETAMINOPHEN 5/325MG TABLET PO PRN (09:49)
[2025-03-05 12:00] VITALS: BP 164/98; PULSE 77; RESP 16; TEMP 36.5; O2SAT 97
[2025-03-05] MEDS: VANCOMYCIN 1.5GM/250ML 250 ML IV SCH (12:53)
[2025-03-05] MEDS: CLONIDINE 0.1MG TABLET PO PRN (12:53)
[2025-03-05] MEDS ORDERED: VANCOMYCIN 1GM/200ML PMX (BAXTER) IV SCH (15:00)
[2025-03-05] MEDS ORDERED: NALOXONE HCL 0.4MG/ML VIAL IV PRN (15:30)
[2025-03-05] MEDS ORDERED: LOSARTAN 50 MG TABLET PO SCH (15:30)
[2025-03-05] MEDS ORDERED: THIAMINE HCL 100MG TABLET PO SCH (15:45)
[2025-03-05 16:00] VITALS: BP 174/96; PULSE 72; RESP 15; TEMP 36.4; O2SAT 96
[2025-03-05 17:19] LABS: CLARITY URINE CLEAR (CLEAR); COLOR URINE YELLOW (YELLOW); GLUCOSE URINE 3+ (NEGATIVE); KETONES URINE NEGATIVE (NEGATIVE); LEUKOCYTE ESTERASE URINE NEGATIVE (NEGATIVE); NITRITE URINE NEGATIVE (NEGATIVE); OCCULT BLOOD URINE NEGATIVE (NEGATIVE); PH URINE 5.5 (4.5-8.0); PROTEIN URINE NEGATIVE (NEGATIVE); SPECIFIC GRAVITY URINE 1.014 (1.005-1.030); UROBILINOGEN URINE 0.2 E.U./dL (0.2-1.0)
[2025-03-05 17:33] LABS: *AMPHETAMINES SCREEN URINE NEGATIVE (NEGATIVE); *BARBITURATES SCREEN URINE NEGATIVE (NEGATIVE); *BENZODIAZEPINES SCREEN URINE NEGATIVE (NEGATIVE); *COCAINE SCREEN URINE NEGATIVE (NEGATIVE)
[2025-03-05 17:34] LABS: CANNABINOID URINE SCREEN NEGATIVE (NEGATIVE); ECSTASY MDMA SCREEN URINE NEGATIVE (NEGATIVE); METHADONE URINE SCREEN NEGATIVE (NEGATIVE); OPIATES URINE SCREEN PRESUMPTIVE POSITIVE (NEGATIVE); PHENCYCLIDINE URINE SCREEN NEGATIVE (NEGATIVE)
[2025-03-05] MEDS: MULTIVITAMINS,THER W-MINERALS TABLET PO SCH (17:39)
[2025-03-05] MEDS: PANTOPRAZOLE SODIUM 40 MG/VIAL IV SCH (17:39)
[2025-03-05] MEDS: FOLIC ACID 1MG TABLET PO SCH (17:40)
[2025-03-05 17:43] LABS: BACTERIA URINE TRACE; RBC URINE NONE SEEN /hpf (0-2); SQUAMOUS EPITHELIAL CELL URINE FEW /lpf (RARE/1+); WBC URINE 0-2 /hpf (0-2)
[2025-03-05] MEDS: HYDRALAZINE 20MG/ML VIAL IV PRN (18:40)
[2025-03-05] MEDS: THIAMINE HCL 100MG TABLET PO SCH (18:46)
[2025-03-05 19:00] VITALS: BP 152/75
[2025-03-05 20:00] VITALS: BP 113/72; PULSE 81; TEMP 36.2
[2025-03-06] VITALS: BP 125/77; PULSE 85; RESP 17; TEMP 36.4; O2SAT 99
[2025-03-06 04:00] VITALS: BP 160/88; PULSE 68; RESP 18; TEMP 36.5; O2SAT 97
[2025-03-06 08:00] VITALS: BP 150/79; PULSE 72; RESP 16; TEMP 36.8
[2025-03-06 09:39] LABS: BASOPHILS % 0.9 % (0.0-2.0); EOSINOPHILS % 4.7 % (0.0-5.0); HEMATOCRIT. 34.7 % (42.0-52.0); HEMOGLOBIN. 11.5 g/dL (14.0-18.0); LYMPHOCYTES % 29.4 % (20.0-50.0); MEAN PLATELET VOLUME 8.4 fl (7.4-10.4); MONOCYTES % 10.2 % (2.0-8.0); NEUTROPHILS % 54.8 % (40.0-76.0); PLATELET 333 x1000/uL (130-400); RED BLOOD CELL COUNT 3.79 mill/uL (4.7-6.1); RED CELL DISTRIBUTION WIDTH 13.7 % (11.6-14.6)
[2025-03-06 09:51] LABS: CREATININE 0.6 mg/dL (0.6-1.3)
[2025-03-06 09:52] LABS: UREA NITROGEN BLOOD 6 mg/dL (9-23)
[2025-03-06 12:00] VITALS: BP 142/77; PULSE 75; RESP 20; TEMP 36.4
[2025-03-06 16:00] VITALS: BP 144/82; RESP 16; TEMP 36.4
[2025-03-06 20:00] VITALS: BP 124/82; PULSE 81; RESP 21; TEMP 36.2; O2SAT 99
[2025-03-06] MEDS: ZOLPIDEM TARTRATE 5MG TABLET PO PRN (23:23)
[2025-03-07] VITALS: BP 142/80; PULSE 73; RESP 20; TEMP 36.3; O2SAT 98
[2025-03-07 04:00] VITALS: BP 140/95; PULSE 66; RESP 15; TEMP 36.2; O2SAT 97
[2025-03-07 08:00] VITALS: BP 100/64; PULSE 78; RESP 16; TEMP 36.4; O2SAT 98
[2025-03-07 08:08] LABS: BASOPHILS % 0.8 % (0.0-2.0); EOSINOPHILS % 4.4 % (0.0-5.0); HEMATOCRIT. 36.8 % (42.0-52.0); HEMOGLOBIN. 12.4 g/dL (14.0-18.0); LYMPHOCYTES % 35.8 % (20.0-50.0); MEAN PLATELET VOLUME 8.4 fl (7.4-10.4); MONOCYTES % 9.7 % (2.0-8.0); NEUTROPHILS % 49.3 % (40.0-76.0); PLATELET 377 x1000/uL (130-400); RED BLOOD CELL COUNT 4.04 mill/uL (4.7-6.1); RED CELL DISTRIBUTION WIDTH 13.3 % (11.6-14.6)
[2025-03-07 08:31] LABS: CREATININE 0.7 mg/dL (0.6-1.3); UREA NITROGEN BLOOD 8 mg/dL (9-23)
[2025-03-07 12:00] VITALS: BP 122/88; PULSE 70; RESP 16; TEMP 36.4; O2SAT 98
[2025-03-07] MEDS: MEROPENEM 1G/100ML 100 ML IV SCH (15:42)
[2025-03-07 16:00] VITALS: BP 117/69; PULSE 80; RESP 18; TEMP 36.5; O2SAT 98
[2025-03-07 20:00] VITALS: BP 128/89; PULSE 83; RESP 20; TEMP 36.3; O2SAT 97
[2025-03-08] VITALS (7 sets, daily range): BP systolic 140–164; BP diastolic 85–115; PULSE 69–85; RESP 15–69; TEMP 36.2–36.7; O2SAT 96–99
[2025-03-09] VITALS: BP 156/83; PULSE 75; RESP 15; TEMP 36.2; O2SAT 97
[2025-03-09 04:00] VITALS: BP 164/85; PULSE 72; RESP 21; TEMP 36.3; O2SAT 96
[2025-03-09 08:00] VITALS: BP 148/102; PULSE 62; RESP 18; TEMP 36.2; O2SAT 96
[2025-03-09 12:00] VITALS: BP 155/105; PULSE 66; RESP 18; TEMP 36.2; O2SAT 98
[2025-03-09 16:00] VITALS: BP 137/88; PULSE 70; RESP 18; TEMP 36.1; O2SAT 99
[2025-03-09 20:00] VITALS: BP 170/92; PULSE 86; RESP 17; TEMP 36.4; O2SAT 99
[2025-03-10] VITALS: BP 136/86; PULSE 71; RESP 18; TEMP 36.4; O2SAT 99
[2025-03-10 04:00] VITALS: BP 120/85; PULSE 73; RESP 18; TEMP 36.6; O2SAT 98
[2025-03-10] MEDS: HYDROCODONE/ACETAMINOPHEN 5/325MG TABLET PO PRN (07:17)
[2025-03-10 08:00] VITALS: BP 153/86; PULSE 76; RESP 16; TEMP 36.2; O2SAT 100
[2025-03-10 09:13] LABS: PLATELET 329 x1000/uL (130-400); RED BLOOD CELL COUNT 3.94 mill/uL (4.7-6.1); RED CELL DISTRIBUTION WIDTH 13.9 % (11.6-14.6)
[2025-03-10 09:39] LABS: CREATININE 0.7 mg/dL (0.6-1.3); UREA NITROGEN BLOOD 10 mg/dL (9-23)
[2025-03-10 12:00] VITALS: BP 144/97; PULSE 71; RESP 16; TEMP 36.2; O2SAT 98
[2025-03-10 16:00] VITALS: BP 141/89; PULSE 69; RESP 18; TEMP 36.2; O2SAT 98
[2025-03-10] MEDS: LOSARTAN 50 MG TABLET PO SCH (18:10)
[2025-03-10 20:00] VITALS: BP 138/89; PULSE 78; RESP 18; TEMP 36.5; O2SAT 97
[2025-03-10] MEDS: VANCOMYCIN 1.25GM/250ML IV SCH (21:21)
[2025-03-10] MEDS ORDERED: NALOXONE HCL 0.4MG/ML VIAL IV PRN (23:00)
[2025-03-11] VITALS (8 sets, daily range): BP systolic 114–180; BP diastolic 47–120; PULSE 63–83; RESP 18–19; TEMP 36.3–36.6; O2SAT 98
[2025-03-11] MEDS: HYDRALAZINE 10 MG in SODIUM CHLORIDE 0.9% 49.5 ML IV PRN (14:20)
[2025-03-11] MEDS: AMLODIPINE 10MG TABLET PO SCH (16:41)
[2025-03-11] MEDS: ZOLPIDEM TARTRATE 5MG TABLET PO PRN (22:23)
[2025-03-11] MEDS: HYDRALAZINE HCL 100MG TABLET PO SCH (22:24)
[2025-03-12] VITALS: BP 153/83; PULSE 84; RESP 18; TEMP 36.3; O2SAT 98
[2025-03-12 04:00] VITALS: BP 118/79; PULSE 68; RESP 18; TEMP 36.1; O2SAT 95
[2025-03-12 08:00] VITALS: BP 139/98; PULSE 83; RESP 18; TEMP 36.2; O2SAT 97
[2025-03-12 08:39] LABS: CREATININE 0.7 mg/dL (0.6-1.3); UREA NITROGEN BLOOD 9 mg/dL (9-23)
[2025-03-12 11:44] VITALS: BP 152/102; PULSE 81; RESP 16; TEMP 36.6; O2SAT 99
[2025-03-12] MEDS ORDERED: ENOXAPARIN 40MG/0.4ML SYR SUBCUT SCH (15:45)
[2025-03-12 15:55] VITALS: BP 112/74; PULSE 83; RESP 18; TEMP 36.4; O2SAT 98
[2025-03-12 20:00] VITALS: BP 99/72; PULSE 90; RESP 20; TEMP 36.8; O2SAT 99
[2025-03-13] VITALS: BP 126/79; PULSE 83; RESP 20; TEMP 36.7; O2SAT 98
[2025-03-13 04:00] VITALS: BP 102/58; PULSE 74; RESP 18; TEMP 36.5; O2SAT 99
[2025-03-13 08:00] VITALS: PULSE 18; RESP 18; TEMP 36.4; O2SAT 99
[2025-03-13 12:00] VITALS: BP 125/89; PULSE 82; RESP 18; TEMP 36.3; O2SAT 98
[2025-03-13 16:00] VITALS: BP 103/59; PULSE 95; RESP 18; TEMP 36.6; O2SAT 99
[2025-03-13 20:00] VITALS: BP 101/75; PULSE 101; RESP 18; TEMP 35.9; O2SAT 98
[2025-03-14] VITALS: BP 125/79; PULSE 96; RESP 18; TEMP 36.7; O2SAT 97
[2025-03-14 04:00] VITALS: BP 108/73; PULSE 85; RESP 18; TEMP 36.3; O2SAT 96
[2025-03-14 08:00] VITALS: BP 96/62; PULSE 80; RESP 20; TEMP 36.8; O2SAT 96
[2025-03-14 12:00] VITALS: BP 129/90; PULSE 94; RESP 19; TEMP 36.7; O2SAT 98
[2025-03-14] MEDS: HYDRALAZINE HCL 100MG TABLET PO SCH (13:37)
[2025-03-14 16:00] VITALS: BP 93/58; PULSE 93; RESP 19; TEMP 36.6; O2SAT 99
[2025-03-14 20:00] VITALS: BP 122/76; PULSE 100; RESP 18; TEMP 36.3; O2SAT 98
[2025-03-15] VITALS: BP 103/49; PULSE 90; RESP 18; TEMP 36.6; O2SAT 97
[2025-03-15 04:00] VITALS: BP 90/60; PULSE 75; RESP 19; TEMP 36.4; O2SAT 97
[2025-03-15 08:00] VITALS: BP 130/80; PULSE 81; RESP 18; TEMP 36.6; O2SAT 98
[2025-03-15] MEDS: ONDANSETRON HCL 4MG/2ML INJ IV PRN (09:33)
[2025-03-15 12:00] VITALS: BP 117/67; PULSE 88; RESP 19; TEMP 36.7; O2SAT 96
[2025-03-15 16:00] VITALS: BP 126/76; PULSE 77; RESP 18; TEMP 36.4; O2SAT 98
[2025-03-15 20:00] VITALS: BP 131/78; PULSE 73; RESP 20; TEMP 36.5; O2SAT 96
[2025-03-16] VITALS: BP 97/56; PULSE 79; RESP 18; TEMP 36.7; O2SAT 96
[2025-03-16 04:00] VITALS: BP 110/68; PULSE 79; RESP 18; TEMP 36.7; O2SAT 97
[2025-03-16 08:00] VITALS: BP 121/84; PULSE 80; RESP 18; TEMP 36.3; O2SAT 95
[2025-03-16] MEDS: ENOXAPARIN 40MG/0.4ML SYR SUBCUT SCH (09:38)
[2025-03-16 12:00] VITALS: BP 122/85; PULSE 83; RESP 18; TEMP 36.4; O2SAT 95
[2025-03-16 16:00] VITALS: BP 114/93; PULSE 95; RESP 18; TEMP 36.3; O2SAT 97
[2025-03-16 20:00] VITALS: BP 137/87; PULSE 96; RESP 18; TEMP 36.9; O2SAT 97
[2025-03-16] MEDS: ACETAMINOPHEN 325MG TABLET PO PRN (21:26)
[2025-03-17] VITALS: BP 110/60; PULSE 95; RESP 18; TEMP 37.3; O2SAT 96
[2025-03-17 04:00] VITALS: BP 106/61; PULSE 82; RESP 19; TEMP 36.7; O2SAT 96
[2025-03-17 08:00] VITALS: BP 129/90; PULSE 84; RESP 17; TEMP 36.6; O2SAT 98
[2025-03-17 08:53] LABS: BASOPHILS % 0.6 % (0.0-2.0); EOSINOPHILS % 0.8 % (0.0-5.0); HEMATOCRIT. 35.5 % (42.0-52.0); HEMOGLOBIN. 11.5 g/dL (14.0-18.0); LYMPHOCYTES % 20.4 % (20.0-50.0); MEAN PLATELET VOLUME 8.9 fl (7.4-10.4); MONOCYTES % 12.1 % (2.0-8.0); NEUTROPHILS % 66.1 % (40.0-76.0); PLATELET 323 x1000/uL (130-400); RED BLOOD CELL COUNT 3.92 mill/uL (4.7-6.1); RED CELL DISTRIBUTION WIDTH 13.6 % (11.6-14.6)
[2025-03-17 09:05] LABS: CREATININE 0.8 mg/dL (0.6-1.3); UREA NITROGEN BLOOD 7 mg/dL (9-23)
[2025-03-17] MEDS ORDERED: LANTUSUD SUBCUT (10:03)
[2025-03-17] MEDS ORDERED: LOSA50TA41 PO (10:03)
[2025-03-17] MEDS ORDERED: HYDR100T31 PO (10:03)
[2025-03-17 12:00] VITALS: BP 102/62; PULSE 87; RESP 16; TEMP 36.7; O2SAT 98
[2025-03-17 13:29] VITALS: BP 102/62; PULSE 87; RESP 16; TEMP 98
== END 2025-03-17 15:04 | disposition home health service (06) | DRG 344 ==
LOC: ER 19:27 → 6WST 23:54 → EDBEDREQTM 03-05 00:06 → EDBEDREQ 03-05 00:06 → ENRESERV 03-05 00:29 → 7EST 03-10 22:38
PROVIDERS: ADMIT Internal Medicine; ATTEND Internal Medicine
DX: E11.621 Type 2 diabetes mellitus with foot ulcer (principal); M86.9 Osteomyelitis, unspecified; Z59.00 Homelessness unspecified; L03.115 Cellulitis of right lower limb; B95.62 Methicillin resistant Staphylococcus aureus infection as the cause of diseases classified elsewhere; B96.20 Unspecified Escherichia coli [E. coli] as the cause of diseases classified elsewhere; E11.69 Type 2 diabetes mellitus with other specified complication; B96.4 Proteus (mirabilis) (morganii) as the cause of diseases classified elsewhere; D64.9 Anemia, unspecified; L97.519 Non-pressure chronic ulcer of other part of right foot with unspecified severity; E11.65 Type 2 diabetes mellitus with hyperglycemia; I10 Essential (primary) hypertension; R60.0 Localized edema; F17.210 Nicotine dependence, cigarettes, uncomplicated; Z79.4 Long term (current) use of insulin; Z79.899 Other long term (current) drug therapy; Z90.49 Acquired absence of other specified parts of digestive tract; Z89.421 Acquired absence of other right toe(s); Z71.6 Tobacco abuse counseling
CPT/HCPCS: 36415; 73620; 73700; 80048; 80202; 80305; 81003; 82550; 82962; 83036; 84145; 85025; 85027; 87070; 87077; 87186; 93970; 97022; 97162; 97164; 97530; 99285; J0360; J1650; J1815; J2185; J2405; J2470; J2543; J3373